=== PATIENT | female | born 1970 | race Caucasian/White ===

== ENCOUNTER 2021-07-29 11:12 | Observation (INO) | payer OTHER, SELFPAY ==
[2021-07-29] VITALS (20 sets, daily range): BP systolic 127–171; BP diastolic 64–97; PULSE 75–109; RESP 15–20; TEMP 36.6–37; O2SAT 96–100; BMI 38.0
--- NOTE | 2021-07-29 | IR_ITS ---
APPROVED REPORT Patient Location: Inpatient Associate Professor Of Physics: [facility] RT (R) PROCEDURES Left heart catheterization Left ventriculogram Selective coronary angiogram INDICATION Acute non-ST elevation myocardial infarction Informed consent was obtained prior to the procedure. COMPLICATIONS None Estimated Blood Loss: Less than 10 mls TECHNIQUE One percent lidocaine used to anesthetize the right anterior aspect of the wrist. The right radial artery was accessed via the Seldinger technique. A 6 [place] Citizen sheath was placed in the right radial artery. 2.5 mg of verapamil, 800 mcg of nitroglycerin, 1mg Lidocaine and 5000 U Heparin were given through the arterial sheath. The papa catheter was also used to perform left heart catheterization, left ventriculogram and selective coronary angiogram. At the end of the procedure the sheath was removed good hemostasis was achieved using Traclet band, patient was transferred to the postop holding area in stable condition. ANGIOGRAPHIC RESULTS The left main artery Normal The left anterior descending artery Is a tortuous vessel with mild 10% diffuse luminal irregularities The circumflex artery Is dominant and has mild 10% luminal irregularities throughout the highly tortuous vessel The right coronary artery Nondominant with 10 to 20% diffuse luminal irregularities The SANTANA ventriculogram reveals Hyperdynamic 75% The left ventricular end-diastolic pressure 25 mmHg IMPRESSION Mild nonflow coronary artery disease in highly tortuous vessels consistent with hypertensive heart disease Hyperdynamic ventricle consistent with hypertensive heart disease Elevated LVEDP consistent with hypertensive heart disease and diastolic dysfunction PLAN 1. Treatment of diastolic dysfunction 2. Risk factor modification Electronically signed by : Evens Johnson MD 07/29/2021 16:01:13
--- NOTE | 2021-07-29 10:55 | PC.NURSE ---
pt admitted to med surg room 208 at this time. Pt is a direct admit from [facility] ED with dx CP and NSTEMI. Aman Pedro VIDEO GAME TESTER on the unit and has been updated. Dr. Alcaraz's office has been notified. Pt is A&O and is able to give hx. She reports that her PCP is Demi in [place] and that Dr. Watson has been treating her for shingles on right face and right ear. She has finished all medications for this. She uses [facility] in [place] for pharmacy. She also reports that her left kidney has completely failed and that this is not a new issues. Her CP started this morning and has been radiating to left arm. Rates current pain a 4/10.
--- NOTE | 2021-07-29 11:37 | CA_ITS ---
APPROVED REPORT EXAM: Comprehensive 2D, Doppler, and color-flow Echocardiogram Furniture Cleaner: Sandie Abel RT(R) Ht: 5 ft 8 in Wt: 250lbs BSA: 2.25 BP: 164/84 mmHg Indications: NSTEMI, CP, smoker, HTN, SOB, family history of HD, lt arm pain, nausea, diaphoresis Echo Enhancing Agent Indication: Endocardial border delineation Agent(s) / Amount(s) Used: Definity 2 cc 2D Dimensions LVOT 1.94 cm (M/F) 1.5-2.5 LVEF (Paredes's) 51.90 % F: 54 - 74 LV Volume 107.70 mL F: 46 - 106 LV Volume Index 48.08 mL/m2 F: 29 - 61 LA Volume 56.50 mL LA Volume Index 25.22 mL/m2 (M/F) 16-34 M-Mode Dimensions RVDd 2.77 cm (0.9-2.6) LA Diam 3.99 cm (1.9-4.0) LVDd 4.47 cm (3.5-5.7) Ao Diam 2.78 cm (2.0-3.7) LVDs 3.35 cm (3.5-5.7) IVSd 0.85 cm (0.6-1.1) PWd 0.98 cm (0.6-1.1) EF (Teich) 49.70% FS 25.10% EDV (Teich) 91.00 mL ESV (Teich) 45.80 mL LV Diastology E Decel Time 145.00 (160-240 msec) E/A Ratio 0.7 MED E' 11.00 (< 7 cm/sec) E'/MED E' Ratio 12.93 (>14) LAT E' 8.10 (<10 cm/sec) E/LAT E' Ratio 17.56 (>14) Aortic Valve LVOT Max 175.00 (70-110 cm/s) LVOT VTI 35.77 cm AoV Peak Mal. 191.00 (50-130 cm/s) AI PHT 354.00 ms AO Peak GR. 14.50 mmHg AO Mean GR. 7.10 (<5 mmHg) AO VTI 37.41 (18-25 cm) BHARAT (VTI) 2.83 (2.5-4.5 cm2) Mitral Valve MV E Max Aml. 142.00 (40-130 cm/s) MV A Velocity 198.00 (40-130 cm/s) E/A Ratio 0.72 MV Decel. Time 145.00 (160-240 ms) MV PHT 42.00 ms Left Ventricle Left atrium is moderately enlarged, left ventricle is normal size, mild concentric left ventricular hypertrophy, visually estimated ejection fraction 55% with no regional wall motion abnormality, grade 1 diastolic dysfunction seen with tissue Doppler evidence of raise left atrial pressure. Right Ventricle Right atrium and right ventricle are normal size and contractility. Aortic Valve Aortic valve is minimally thickened and fibrosed, there is aortic stenosis, there is mild aortic insufficiency. Mitral Valve Mitral valve leaflets are minimally thickened, there is mitral annular calcification present involving the posterior mitral leaflet, posterior mitral leaflet is redundant. Mitral inflow velocity is mildly increased, there is mild mitral regurgitation, there is likely mild mitral stenosis. Tricuspid Valve Tricuspid valve grossly normal, there is mild tricuspid regurgitation, tricuspid regurgitation jet versus inadequate for calculation of the right ventricular systolic pressure. Pulmonic Valve Pulmonic valve is poorly visualized. Great Vessels Aortic root is normal size. Inferior vena cava is poorly visualized. Pericardium No significant pericardial effusion. Conclusion 1. Moderately enlarged left atrium, normal left ventricular size, mild concentric left ventricular hypertrophy, visually estimated ejection fraction 55% with no regional wall motion abnormality, grade 1 diastolic dysfunction seen with tissue Doppler evidence of raise left atrial pressure. Definity contrast was utilized to delineate the endocardial surfaces, there is no left ventricular thrombus seen. 2. Thickened and calcified aortic valve without aortic stenosis, there is mild aortic insufficiency. 3. Abnormal mitral valve as described above likely mild mitral stenosis and mitral regurgitation. 4. No significant pericardial effusion. 5. Inferior vena cava is poorly visualized. Electronically signed by : Joao Aden MD 07/29/2021 15:05:10
--- NOTE | 2021-07-29 11:37 | CA_ITS ---
FINAL REPORT TECHNIQUE: Color Doppler, duplex Doppler and ramirez scale sonography of the bilateral neck arterial vasculature was performed. Velocities were measured in the carotid arteries. Stenosis evaluation based on the validated velocity criteria. CLINICAL HISTORY: LT-CAROTID BRUIT, SMOKER, DRUG USE, OBESITY, ANXIETY FINDINGS: The peak systolic velocity of the right common carotid artery is 68 cm/s. The peak systolic velocity of the right internal carotid artery is 116 cm/s and end diastolic velocity 33 cm/s. The ICA/CCA ratio is 1.74. A mild to moderate amount of plaque is present. The right external carotid artery is patent. The right vertebral artery is patent with antegrade flow. The peak systolic velocity of the left common carotid artery is 80 cm/s. The peak systolic velocity of the left internal carotid artery is 381 cm/s and end diastolic velocity 116 cm/s. The ICA/CCA ratio is 5.44. A moderate to large amount of plaque is present. The left external carotid artery is patent.The left vertebral artery is patent with antegrade flow. IMPRESSION: Less than 50% stenosis on the right. Greater than 70% stenosis on the left. Recommend correlation with CTA or catheter angiogram. Reviewed, Interpreted and Dictated by Ben Osorio III, MD Transcribed by Taina Kim Authenticated by Ben Osorio III, MD on 07/29/2021 02:03:07 PM [facility]
--- NOTE | 2021-07-29 11:38 | HMH.CNCARD ---
History of Present Illness Consult date: 07/29/21 Requesting physician: Bernard Alcaraz Consult reason: chest pain Chief complaint: chest pain History of present illness: This is a 50-year-old white female who presented to the emergency department at [facility] with complaints of chest pain and was found to have a non-ST elevation myocardial infarction. The patient was then transferred here to [facility]. The patient states that she woke up early this morning with sudden onset of pressure in the left side of her chest. She states that it radiates down her left arm. She states that this is a pressure sensation. It is severe. It is associated with shortness of breath, nausea and diaphoresis. She states that after the chest pain had been going on for maybe an hour she started to have nausea and vomiting and then decided to come to the emergency department at [facility]. The patient states that her heart feels like it is beating really fast sometimes as well. She is very anxious while I am speaking to her and gets very tearful. She does have a history of hypertension. She states that her mother had coronary artery disease with stenting. She is a 1 pack/day smoker. 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 She states that she is getting Suboxone from other people. She also has a history of using cocaine with her last use approximately 3 months ago. She denies any edema. She denies any fever, chills, diarrhea, PND or orthopnea. She denies history of stroke. She does have facial drooping noted which she states is from a recent shingles outbreak that was really severe and affected her nerves and even went down into her ears. [facility] History I have reviewed the patient's past medical history: Yes Medical History: Reports:: Anxiety, Hypertension, Renal Disease Denies:: Coronary Artery Disease, Diabetes Mellitus Type 2, Hyperlipidemia *Have you ever received a pneumonia vaccine?: No *Have you received a flu vaccine this season?: No - *Social History Smoking Status: Current every day smoker Tobacco Type: cigarettes # Packs/Day (cigarettes): 1 Alcohol Intake: never Substance Use Type: marijuana, crack/cocaine, opiates *Occupational Status:: other *Travel in the last 8 weeks: None Family Hx:: Coronary Artery Disease, Hypertension Meds Home Medications Medication Instructions Recorded Confirmed Type Amlodipine Besylate 5 mg PO DAILY 07/29/21 07/29/21 History Hydralazine HCl [Hydralazine HCl 25 mg PO TID 07/29/21 07/29/21 History 25mg Tablet] Metoprolol Tartrate [Lopressor 25 mg PO BID 07/29/21 07/29/21 History 25mg tablet] Allergies Allergy/AdvReac Type Severity Reaction Status Date / Time acetaminophen Allergy Rash Verified 07/29/21 11:21 [From Tylenol-Codeine] codeine Allergy Rash Verified 07/29/21 11:21 [From Tylenol-Codeine] hydrocodone [From Lortab] Allergy Rash Verified 07/29/21 11:21 Exam Vital signs and Labs for Last 24 Hours: Temp Pulse Resp BP Pulse Ox 97.8 F 99 H 19 164/64 H 96 07/29/21 11:31 07/29/21 11:31 07/29/21 11:31 07/29/21 11:31 07/29/21 11:31 I & O for Last 24 hours: Intake & Output 07/26/21 07/27/21 07/28/21 07/29/21 23:59 23:59 23:59 23:59 Weight 250 lb - Constitutional no acute distress, obese - *Routine HEENT Exam Head: Present: normocephalic, atraumatic Eye: Present: EOMI, PERRL ENT: Present: mucous membranes moist - *Routine Neck Exam Present: supple, full ROM, carotid bruit (Left carotid bruit), normal carotid upstroke. Absent: JVD, lymphadenopathy - *Routine Respiratory Exam Present: CTA bilaterally - *Routine Cardiovascular Exam Present: RRR, Normal S1, Normal S2. Absent: murmur - *Routine Abdominal Exam Present: soft, normoactive bowel sounds. Absent: tenderness, distended - *Routine Extr
--- NOTE | 2021-07-29 11:45 | HMH.PHAINT ---
MEDICATION RECONCILIATION COMPLETED ON PATIENT USING EXTERNAL FILL HISTORY FROM PHARMACY. -ELTON ANGEL, TANGD
[2021-07-29 11:46] LABS: Coronavirus 19, PCR Not Detected (NotDetected); Influenza A, PCR Not Detected (NotDetected); Influenza B, PCR Not Detected (NotDetected)
--- NOTE | 2021-07-29 11:47 | HMH.PHAVTE ---
[facility] Pharmacy VTE Monitoring - Patient Demographics Admission date: 07/29/21 Report Date: 07/29/21 Time: 11:47 Allergies/Adverse Reactions: Patient Allergies acetaminophen [From Tylenol-Codeine] Allergy (Verified 07/29/21 11:21) Rash codeine [From Tylenol-Codeine] Allergy (Verified 07/29/21 11:21) Rash hydrocodone [From Lortab] Allergy (Verified 07/29/21 11:21) Rash Height: 1.73 m Weight: 113.398 kg - Prophylaxis VTE Prophylaxis Ordered?: Yes Types of VTE Prophylaxis: TEDS Knee High Location of Applied Device: Bilateral Lower Extremeties
--- NOTE | 2021-07-29 12:15 | HMH.HP ---
*Admission Date: 07/29/21 *Chief complaint: Chest Pain *History of present illness: 50-year-old female patient presented to [facility] with reports of chest pain. She reports having left-sided chest pain this morning radiating up into her left shoulder, reported that it is more a pressure than pain and rated pain 9 out of 10. During the chest pain/pressure episode she reports shortness of breath diaphoretic, and nausea she was found to have a non-ST elevated myocardial infarction and was transferred to [facility]. She reports chest pain lasted approximately an hour and decided to come to the [facility] emergency department she also reports heart was beating really fast. She does have a history of hypertension and reports mother has coronary artery disease with previous stenting. She is a 1 pack/day smoker for 35 years and also reports going to [facility] E[facility] appointment and being told she has shingles in her ear and that is affected for facial nerves. She does have a facial droop, unable to raise eyebrows, and unable to blink bilaterally, she reports this has been going on for a month or so. She denies any previous cardiac or pulmonary occurrences in the past and reports just starting to see a primary care provider recently. [facility] History I have reviewed the patient's past medical history: Yes Medical History: Reports:: Anxiety, Hypertension, Renal Disease Denies:: Cancer, Coronary Artery Disease, Diabetes Mellitus Type 1, Diabetes Mellitus Type 2, Hyperlipidemia, MRSA *Have you ever received a pneumonia vaccine?: No *Have you received a flu vaccine this season?: No Other Surgeries: Yes: Cholecystectomy, Hysterectomy-Total Amputation: No Fractures: No - *Social History Last grade of school completed: High school graduate Smoking Status: Current every day smoker Tobacco Type: cigarettes # Packs/Day (cigarettes): 1 Alcohol Intake: never Substance Use Type: marijuana, crack/cocaine, opiates *Occupational Status:: other Housing: house Household Members: spouse, family, children *Travel in the last 8 weeks: None - Psychiatric History Pschychiatric History:: Reports:: Anxiety Family Hx:: Coronary Artery Disease, Hypertension Review of Systems - Review of Systems Review of systems:: pertinent systems reviewed and negative unless documented below - Constitutional Denies body ache(s), Denies excessive sweating - Eyes Denies blind spots, Denies double vision - ENT Denies dry mouth, Denies hearing loss - *Cardiovascular Reports chest pain, Reports chest pain at rest, Reports chest pain with activity, Reports shortness of breath, Reports shortness of breath with activity - *Respiratory Reports cough, Reports shortness of breath, Reports shortness of breath with activity, Denies chest congestion - *Gastrointestinal Denies abdominal pain, Denies change in bowel habits, Denies coffee ground vomit - *Musculoskeletal Denies muscle cramps, Denies muscle weakness, Denies body aches - Integumentary/Breasts Denies change in skin color, Denies lesions, Denies unusual bruising - *Neurologic Denies abnormal hearing, Denies seizure-like activity, Denies dizziness - Psychiatric Denies behavioral changes, Denies change in appetite - Endocrine Denies cold intolerance, Denies excessive sweating - Hematologic/Lymphatic Denies easy bleeding, Denies easy bruising - Allergic/Immunologic Denies GI upset with certain foods, Denies tongue swelling Meds Home Medications Medication Instructions Recorded Confirmed Type Amlodipine Besylate 5 mg PO DAILY 07/29/21 07/29/21 History Hydralazine HCl [Hydralazine HCl 25 mg PO TID 07/29/21 07/29/21 History 25mg Tablet] Metoprolol Tartrate [Lopressor 25 mg PO BID 07/29/21 07/29/21 History 25mg tablet] Allergies Allergy/AdvReac Type Severity Reaction Status Date / Time acetaminophen Allergy Rash Verified 07/29/21 11:21
--- NOTE | 2021-07-29 12:28 | PC.NURSE ---
pt taken downstairs with Tena Abel for echo.
--- NOTE | 2021-07-29 13:22 | PC.NURSE ---
pt back from echo and radiology
--- NOTE | 2021-07-29 13:43 | PC.NURSE ---
[facility]
--- NOTE | 2021-07-29 14:35 | CT_ITS ---
PROCEDURE INFORMATION: Exam: CT Angiography Neck With Contrast Exam date and time: 07/29/2021 2:35 PM Age: 50 years old Clinical indication: Condition or disease; Other: Praful; Prior surgery; Surgery date: Post-operative (0-2 days); Surgery type: Cath procedure TECHNIQUE: Imaging protocol: Computed tomography angiography of the neck with contrast. 3D rendering (Not supervised by radiologist): MIP and/or 3D reconstructed images were created by the technologist. Radiation optimization: All CT scans at this facility use at least one of these dose optimization techniques: automated exposure control; mA and/or kV adjustment per patient size (includes targeted exams where dose is matched to clinical indication); or iterative reconstruction. Contrast material: ISO 370; Contrast volume: 70 ml; Contrast route: INTRAVENOUS (IV); COMPARISON: US CA CAROTID DUPLEX BI 07/29/2021 12:47 PM FINDINGS: Right common carotid artery: No stenosis. No dissection or occlusion. 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 Limited atherosclerosis right internal carotid artery origin with short segment mild stenosis. Right external carotid artery: No occlusion or stenosis of the origin. Left common carotid artery: No stenosis. No dissection or occlusion. Left internal carotid artery: Intimal thickening or noncalcific plaque contributes to a short segment severe 75% stenosis of the left internal carotid artery 2.2 cm distal from its origin. There is moderate stenosis at the origin contributed by calcific and noncalcific plaque. Left external carotid artery: No occlusion or stenosis of the origin. Right vertebral artery: Dominant right vertebral artery. Left vertebral artery: Short segment near occlusion at the origin of the left vertebral artery. Vessel remains relatively diminutive but patent through level of the C6 transverse foramen without stenosis distal to this. Dental: Severe dental disease. Soft tissues: See Left internal carotid artery finding. Bones/joints: No acute fracture. Lungs: 4mm and 3 mm indeterminate pulmonary nodules right upper lobe. IMPRESSION: 1. 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 2. Intimal thickening or noncalcific plaque contributes to a short segment severe 75% stenosis of the left internal carotid artery 2.2 cm distal from its origin. There is moderate stenosis at the origin contributed by calcific and noncalcific plaque. 3. Limited atherosclerosis right internal carotid artery origin with short segment mild stenosis. 4. Short segment near occlusion at the origin of the left vertebral artery. Vessel remains relatively diminutive but patent through level of the C6 transverse foramen without stenosis distal to this. 5. 4mm and 3 mm indeterminate pulmonary nodules right upper lobe. REFERENCES: NASCET CRITERIA. The degree of internal carotid artery stenosis is based on NASCET criteria. Normal is no stenosis. Mild is less than 50% stenosis. Moderate is 50-69% stenosis. Severe is 70% to 99% stenosis. Total occlusion is no detectable patent lumen. As per Fleischner Society 2017 guidelines for follow-up and management of solid pulmonary nodules less than 6mm: For patients at low risk (minimal or absent history of smoking and of other known risk factors), No routine followup. For patient at high risk (history of smoking or of other known risk factors), Optional CT at 12 months.
--- NOTE | 2021-07-29 15:27 | PC.NURSE ---
received report from cathAshlee singh RN
--- NOTE | 2021-07-29 15:47 | PC.NURSE ---
[facility]
[2021-07-30] VITALS: BP 174/76; PULSE 80; PULSE 87; RESP 18; TEMP 36.7; O2SAT 94
[2021-07-30 04:00] VITALS: BP 156/60; PULSE 88; PULSE 90; RESP 18; TEMP 36.8; O2SAT 94
[2021-07-30 05:00] VITALS: BMI 37.5
[2021-07-30 06:57] LABS: Basophils # 0.1 K/mm3 (0-0.2); Basophils % 1.2 % (0.1-2.0); Eosinophils # 0.2 K/mm3 (0.0-0.4); Eosinophils % 2.4 % (0.1-12.0); Hematocrit 40.2 % (37.0-47.0); Hemoglobin 12.4 g/dL (12.2-16.2); Lymphocytes # 3.5 K/mm3 (0.7-4.5); Lymphocytes % 35.4 % (10-50); Mean Corpuscular HGB Conc 30.8 g/dL (31.8-35.4); Mean Platelet Volume 8.1 fl (7.4-10.4); Monocytes # 0.5 K/mm3 (0.1-1.0); Monocytes % 5.3 % (1.7-9.3); Neutrophils # 5.5 K/mm3 (1.8-7.8); Neutrophils % 55.7 % (37.0-80.0); Platelet Count 309 K/mm3 (142-424); Red Blood Count 3.76 M/mm3 (4.20-5.40); Red Cell Distribution Width 14.7 % (11.5-17.5); White Blood Count 9.9 K/mm3 (4.8-10.8)
[2021-07-30 06:58] LABS: Alanine Aminotransferase 22 U/L (12-78); Albumin Level 3.7 g/dl (3.5-5.0); Alkaline Phosphatase 196 U/L (38-126); Aspartate Amino Transferase 26 U/L (14-36); Bilirubin,Direct 0.3 mg/dl (0.0-0.4); Bilirubin,Indirect 0.3 mg/dL (0.0-0.9); Bilirubin,Total 0.6 mg/dl (0.2-1.3); Bilirubin,Unconjugated 0.3 mg/dL (0.0-1.1); Blood Urea Nitrogen 12 mg/dl (7-17); Calcium 8.7 mg/dl (8.4-10.2); Carbon Dioxide 27 mmol/L (22.0-30.0); Chloride 104 mmol/L (98-107); Chol/HDL Ratio 4.1 (1-3.5); Cholesterol 200 mg/dl (140-200); Creatinine Clearance Estimated 167 mL/min (50-200); Estimated Glomerular Filt Rate 88 ml/min (>60); GFR (African American) 106 ML/MIN (>60); Glucose 106 mg/dl (74-100); HDL Cholesterol 49 mg/dl (40-60); Sodium 136 mmol/L (136-145); Total Protein,Serum 6.8 g/dl (6.3-8.2); Triglycerides 180 mg/dl (30-150); VLDL Cholesterol 36 mg/dL (0-40)
[2021-07-30 07:09] LABS: Direct LDL Cholesterol 96.41 mg/dL (100-129)
[2021-07-30 07:45] VITALS: BP 132/61; PULSE 98; RESP 18; TEMP 36.8; O2SAT 95
[2021-07-30 08:00] VITALS: O2SAT 95
--- NOTE | 2021-07-30 11:02 | HMH.PNCARD ---
Subjective Date: 07/30/21 Time: 09:30 Principal diagnosis: HHD, OCCO Interval history: This is a 50-year-old white female presented to the hospital at [facility] with complaints of chest pain with found to have a non-ST elevation myocardial infarction. Patient was transferred here to and was found to have mild nonocclusive coronary artery disease. The patient did have hypertensive heart disease with elevated LVEDP. The patient does need better blood pressure control. She was also found to have a left carotid bruit and underwent carotid duplex which showed less than 50% stenosis on the right and greater than 70% stenosis on the left. A CTA was obtained which shows an aneurysm of the right internal carotid artery and 75% stenosis of the left internal carotid artery. Dr. Johnson has a call out to Dr. Young at [facility] to discuss treatment options for her carotid artery stenosis. The patient does have right-sided facial droop which she states was from a recent shingles infection. She denies any chest pain or pressure this morning. She denies any shortness of breath or edema. She denies any fever, chills, nausea, vomiting, diarrhea, PND or orthopnea. She denies any CVA-like symptoms. Exam Vital signs and Labs for Last 24 Hours: Temp Pulse Resp BP Pulse Ox 98.2 F 98 H 18 132/61 95 07/30/21 07:45 07/30/21 07:45 07/30/21 07:45 07/30/21 07:45 07/30/21 07:45 Laboratory Results - last 24 hr 07/29/21 11:40: SARS-CoV-2 (PCR) Not detected, Influenza A Untype (PCR) Not detected, Influenza Type B (PCR) Not detected 07/30/21 06:05: WBC 9.9, RBC 3.76 L, Hgb 12.4, Hct 40.2, MCV 107.0 H, MCH 33.0 H, MCHC 30.8 L, RDW 14.7, Plt Count 309, MPV 8.1, Neut % (Auto) 55.7, Lymph % (Auto) 35.4, Arroyo % (Auto) 5.3, Eos % (Auto) 2.4, Baso % (Auto) 1.2, Neut # (Auto) 5.5, Lymph # (Auto) 3.5, Arroyo # (Auto) 0.5, Eos # (Auto) 0.2, Baso # (Auto) 0.1 07/30/21 06:05: Sodium 136, Potassium 4.0, Chloride 104, Carbon Dioxide 27, Anion Gap 9.0, BUN 12, Creatinine 0.70, Estimated Creat Clear 167, Estimated GFR 88, Est GFR ( Amer) 106, Glucose 106 H, Calcium 8.7, Total Bilirubin 0.6, Direct Bilirubin 0.3, Conjugated Bilirubin 0.0, Indirect Bilirubin 0.3, Unconjugated Bilirubin 0.3, AST 26, ALT 22, Alkaline Phosphatase 196 H, Total Protein 6.8, Albumin 3.7, Triglycerides 180 H, Cholesterol 200, LDL Cholesterol Direct 96.41 L, VLDL Cholesterol 36, HDL Cholesterol 49, Cholesterol/HDL Ratio 4.1 H I & O for Last 24 hours: Intake & Output 07/27/21 07/28/21 07/29/21 07/30/21 23:59 23:59 23:59 23:59 Intake Total 280 / 280 120 / 120 Output Total 0 / 0 0 / 0 Balance 280 / 280 120 / 120 Weight 250 lb 247 lb 6 oz Narrative: LHC shows: The left main artery Normal The left anterior descending artery Is a tortuous vessel with mild 10% diffuse luminal irregularities The circumflex artery Is dominant and has mild 10% luminal irregularities throughout the highly tortuous vessel The right coronary artery Nondominant with 10 to 20% diffuse luminal irregularities The SANTANA ventriculogram reveals Hyperdynamic 75% The left ventricular end-diastolic pressure 25 mmHg IMPRESSION Mild nonflow coronary artery disease in highly tortuous vessels consistent with hypertensive heart disease Hyperdynamic ventricle consistent with hypertensive heart disease Elevated LVEDP consistent with hypertensive heart disease and diastolic dysfunction PLAN 1. Treatment of diastolic dysfunction 2. Risk factor modification CNI shows: Less than 50% stenosis on the right. Greater than 70% stenosis on the left. Recommend correlation with CTA or catheter angiogram. Echo shows: 1. Moderately enlarged left atrium, normal left ventricular size, mild concentric left ventricular hypertrophy, visually estimated ejection fraction 55% with no regional wall motion abnormality, grade 1 diastolic dysfunction seen with tissue Doppler nithin
[2021-07-30 11:36] VITALS: BP 157/92; PULSE 91; RESP 20; TEMP 36.8; O2SAT 94
--- NOTE | 2021-07-30 12:19 | DIET.NUTRFU ---
During rounds physician indicated she was discharging today and also encouraged low carb diet and weight loss. RD attempted to provide education and she was sleeping soundly. Left handout in folder.
--- NOTE | 2021-07-30 13:30 | HMH.DCSUM ---
General - General Admission date:: 07/29/21 Discharge date: 07/30/21 HPI HPI: 50-year-old female patient presented to [facility] with reports of chest pain. She reports having left-sided chest pain this morning radiating up into her left shoulder, reported that it is more a pressure than pain and rated pain 9 out of 10. During the chest pain/pressure episode she reports shortness of breath diaphoretic, and nausea she was found to have a non-ST elevated myocardial infarction and was transferred to [facility]. She reports chest pain lasted approximately an hour and decided to come to the [facility] emergency department she also reports heart was beating really fast. She does have a history of hypertension and reports mother has coronary artery disease with previous stenting. She is a 1 pack/day smoker for 35 years and also reports going to [facility] ENT appointment and being told she has shingles in her ear and that is affected for facial nerves. She does have a facial droop, unable to raise eyebrows, and unable to blink bilaterally, she reports this has been going on for a month or so. She denies any previous cardiac or pulmonary occurrences in the past and reports just starting to see a primary care provider recently. Hospital Course Hospital Course: Dr. Johnson has talked to the radiologist who read the CTA of the neck. 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 Dr. Johnson has spoke to Dr. Young at [facility] about the aneurysm of the right internal carotid artery and this can be treated and followed as an outpatient. Dr. Young recommends referral to Dr. Santamaria at [facility] for follow-up on the aneurysm of the right internal carotid artery. 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 The patient can be discharged home from a cardiac standpoint. She will follow-up as an outpatient for the aneurysm of the right internal carotid artery. The patient will need to be charged on hydrochlorothiazide 25 mg daily, bisoprolol 10 mg daily, verapamil 240 mg daily, aspirin 81 mg daily and atorvastatin 40 mg p.o. nightly. The patient is to follow-up in 1 to 2 weeks in cardiology clinic on an outpatient basis. Abnormal Lab Results 07/30/21 06:05: RBC 3.76 L, MCV 107.0 H, MCH 33.0 H, MCHC 30.8 L 07/30/21 06:05: Glucose 106 H, Alkaline Phosphatase 196 H, Triglycerides 180 H, LDL Cholesterol Direct 96.41 L, Cholesterol/HDL Ratio 4.1 H Ordering Physician: Ree Pedro APRN Date of Service: 07/29/21 Procedure(s): CA carotid duplex BI Accession Number(s): [id number] cc: Ree Pedro APRN; Ben Osorio MD; Provider,Referral MD~ FINAL REPORT TECHNIQUE: Color Doppler, duplex Doppler and ramirez scale sonography of the bilateral neck arterial vasculature was performed. Velocities were measured in the carotid arteries. Stenosis evaluation based on the validated velocity criteria. CLINICAL HISTORY: LT-CAROTID BRUIT, SMOKER, DRUG USE, OBESITY, ANXIETY FINDINGS: The peak systolic velocity of the right common carotid artery is 68 cm/s. The peak systolic velocity of the right internal carotid artery is 116 cm/s and end diastolic velocity 33 cm/s. The ICA/CCA ratio is 1.74. A mild to moderate amount of plaque is present. The right external carotid artery is patent. The right vertebral artery is patent with antegrade flow. The peak systolic velocity of the left common carotid artery is 80 cm/s. The peak systolic velocity of the left internal carotid artery is 381 cm/s and end diastolic velocity 116 cm/s. The ICA/CCA ratio is 5.44. A moderate to large amount of plaque is present. The left external carotid artery is patent.The left vertebral artery is patent with antegrade flow. IMPRES
--- NOTE | 2021-07-30 14:56 | PC.NURSE ---
Discharge paperwork completed, medication list still needs to be completed by provider. Julienne Crowder APRN called at office and note left on desk by Eliza.
[2021-07-30 15:38] VITALS: BP 139/82; PULSE 73; RESP 16; TEMP 36.5; O2SAT 97
--- NOTE | 2021-08-02 14:37 | CARE MANAGER ---
Spoke with this patient this AM about discharge medications, follow-up and condition. Patient states that she is good and has her medications and everything she needs. Instructed patient to follow-up with me for any needs post-discharge.
== END 2021-07-30 15:36 | disposition home or self-care (01) ==
PROVIDERS: Internal Medicine; Nurse Practitioner Family; Admitting Provider Emergency Medicine; Visit Provider Emergency Medicine
DX: I21.4 Non-ST elevation (NSTEMI) myocardial infarction (principal); I10 Essential (primary) hypertension; F17.210 Nicotine dependence, cigarettes, uncomplicated; I25.110 Atherosclerotic heart disease of native coronary artery with unstable angina pectoris; I65.23 Occlusion and stenosis of bilateral carotid arteries; I72.0 Aneurysm of carotid artery; R29.810 Facial weakness; Z20.822 Contact with and (suspected) exposure to COVID-19
CPT/HCPCS: 36415; 70498; 80048; 80061; 80076; 85025; 93306; 93458; 93880; 99152; C1725; C1760; C1769; C9803; G0378; J1644; Q9957; Q9967; U0003; U0005